=== PATIENT | female | born 1965 | race Caucasian/White ===

== ENCOUNTER 2018-05-23 18:59 | Emergency (ER) | payer SELFPAY ==
[~2018-05-23] VITALS: Ht 160 cm; Wt 129.3 kg
[2018-05-23] MEDS ORDERED: CLONIDINE HCL 0.2 MG TAB ONE (19:26)
[2018-05-23] MEDS ORDERED: CLONIDINE HCL 0.2 MG TAB PO ONE (19:30)
== END 2018-05-23 22:11 | disposition home or self-care (01) ==
LOC: ER 18:59
DX: M54.5 Low back pain (principal); S39.012A Strain of muscle, fascia and tendon of lower back, initial encounter; W18.30XA Fall on same level, unspecified, initial encounter; Y92.008 Other place in unspecified non-institutional (private) residence as the place of occurrence of the external cause; I10 Essential (primary) hypertension
CPT/HCPCS: 99282